=== PATIENT | female | born 1990 | race Caucasian/White ===

== ENCOUNTER 2018-11-01 21:38 | Emergency (ER) | payer SELFPAY ==
[2018-11-01 21:54] VITALS: RESP 16; TEMP 101.7
[2018-11-01] MEDS ORDERED: IBUPROFEN 600 MG TAB PO ONE (22:01)
[2018-11-01] MEDS ORDERED: IBUPROFEN 600 MG TAB ONE (22:10)
[2018-11-01 22:54] VITALS: BP 131/87; PULSE 105; O2SAT 97
== END 2018-11-01 22:43 | disposition home or self-care (01) | DRG 392 ==
LOC: ED 21:38
DX: K52.9 Noninfective gastroenteritis and colitis, unspecified (principal)
CPT/HCPCS: 99282; 99283; A9270-GY